=== PATIENT | male | born 1940 | race Caucasian/White ===

== ENCOUNTER 2019-05-15 05:39 | Emergency (ER) | payer OTHER ==
[~2019-05-15] VITALS: Ht 172.7 cm; Wt 92.5 kg
[2019-05-15 05:45] VITALS: BP_SYST 189
--- NOTE | 2019-05-15 05:51 | NUR ---
Patient to ER bed 8 for evaluation. Side rails up.
--- NOTE | 2019-05-15 05:52 | NUR ---
Pt BIB son C/O urinary retention since 0000 today. Pt's 07/24 abdominal pain, has hx of being catheterized in the ED. Denies any other symptoms at this time. Will continue to monitor.
--- NOTE | 2019-05-15 05:55 | NUR ---
ER Dr. Solano at bedside examining patient.
--- NOTE | 2019-05-15 06:10 | NUR ---
# 16 FR Crowe catheter with use of sterile technique. Immediate return of 1000 cc clear, yellow urine noted. Bedside drainage bag placed below level of bladder. Urine sample collected and sent to lab. Pt tolerated procedure well.
[2019-05-15 06:35] LABS: BASOPHILS % (AUTO) 0.9 % (0.0-2.0); EOSINOPHILS % (AUTO) 0.4 % (0.0-4.0); HEMATOCRIT 40.7 % (36-54); HEMOGLOBIN 13.8 g/dL (14.0-18.0); LYMPHOCYTES # (AUTO) 0.9 K/uL (1.0-5.5); LYMPHOCYTES % (AUTO) 16.7 % (20.5-51.5); MEAN CORPUSCULAR HEMOGLOBIN 31 pg (27-31); MEAN CORPUSCULAR HGB CONC 34 % (32-36); MEAN CORPUSCULAR VOLUME 93 fL (79.0-98.0); MONOCYTES # (AUTO) 0.3 K/uL (0.0-1.0); MONOCYTES % (AUTO) 6.2 % (1.7-9.3); NEUTROPHILS # (AUTO) 3.9 K/uL (1.8-7.7); PLATELET COUNT (AUTO) 105 K/uL (130-430); RED BLOOD CELL COUNT(AUTO) 4.39 MIL/uL (4.2-6.2); RED CELL DISTRIBUTION WIDTH 13.3 % (9.0-15.0); WHITE BLOOD COUNT (AUTO) 5.2 K/uL (4.8-10.8)
[2019-05-15 06:39] LABS: ANION GAP 9 (5-15); CALCIUM 8.5 mg/dL (8.4-11.0); CHLORIDE 100 mmol/L (98-107); GLUCOSE 229 mg/dL (70-99); POTASSIUM 3.4 mmol/L (3.5-5.1); SODIUM SERUM 132 mmol/L (136-145); UREA NITROGEN, BLOOD 13 mg/dL (8-21)
[2019-05-15 06:43] LABS: ALANINE AMINOTRANSFERASE 19 U/L (12-78); ALBUMIN 3.6 g/dL (3.4-4.8); ASPARTATE AMINOTRANSFERASE 19 U/L (10-37); TOTAL BILIRUBIN 0.6 mg/dL (0.0-1.0)
--- NOTE | 2019-05-15 07:02 | NUR ---
Pt is resting in bed, no acute distress noted at this time. Will continue to monitor. Report has been given to Janna DICKEY for continuation of care.
--- NOTE | 2019-05-15 07:05 | NUR ---
Patient asleep in [facility], son of patient at bedside. I introduced myself as dayshift RN.
--- NOTE | 2019-05-15 07:20 | NUR ---
Per Dr. Rivera I removed marion drainage bag & replaced it with leg bag. Patient tolerated well.
[2019-05-15 07:30] LABS: BILIRUBIN,URINE NEGATIVE (NEGATIVE); BLOOD, URINE 1+ (NEGATIVE); CLARITY/URINE CLEAR (CLEAR); COLOR,URINE YELLOW (YELLOW); GLUCOSE,URINE 1+ (NEGATIVE); KETONES,URINE NEGATIVE (NEGATIVE); LEUKOCYTE ESTERASE ,URINE NEGATIVE (NEGATIVE); NITRITE, URINE NEGATIVE (NEGATIVE); PROTEIN URINE NEGATIVE (NEGATIVE); UROBILINOGEN,URINE 0.2 (0.2-1.0)
[2019-05-15 08:25] VITALS: BP_SYST 189
[2019-05-15 08:29] LABS: BACTERIA,URINE MODERATE /HPF (None Seen); MUCUS,URINE 1+ /LPF (None Seen); RBC,URINE 0-3 /HPF (0-3); WBC,URINE 0-3 /HPF (0-3)
[2019-05-15 11:23] LABS: NEUTROPHILS % (AUTO) 75.8 % (40.0-70.0)
== END 2019-05-15 08:25 | disposition home or self-care (01) ==
LOC: SED 05:39
DX: R33.9 Retention of urine, unspecified (principal)
CPT/HCPCS: 36415; 80053; 81000-TC; 85025; 87086; 99284